=== PATIENT | female | born 1955 | race African-American/Black ===

== ENCOUNTER → 2016-12-08 | Outpatient (CLI) | payer OTHER ==
[~2016-12-08] MED LIST: HYDROCHLOROTH12.5 MG; METOPROLOL SUCC25 M1; NIFEDICAL XL30 MG PO; ULTRAM 50MG TAB50 MG PO
== END ==
LOC: RAD 09:27
DX: Z12.31 Encounter for screening mammogram for malignant neoplasm of breast (principal)

== ENCOUNTER → 2019-01-06 | Outpatient (CLI) | payer OTHER | LOC: RAD 10:17 | DX: Z12.31 Encounter for screening mammogram for malignant neoplasm of breast (principal) ==

== ENCOUNTER 2019-03-28 09:37 | Emergency (ER) | payer OTHER ==
[~2019-03-28] VITALS: Ht 154.9 cm; Wt 70.3 kg
[2019-03-28] MEDS ORDERED: TENORMIN25 MG PO (10:08)
[2019-03-28] MEDS ORDERED: POTASSIUM20 PO (10:09)
[2019-03-28 11:15] LABS: ABSOLUTE NEUTROPHILS 2.5 thou/uL (1.4-8.2); BASOPHILS 0.9 % (0.0-2.0); EOSINOPHILS 2.5 % (0.0-3.0); HEMATOCRIT 37.8 % (37.0-47.0); HEMOGLOBIN 11.9 gm/dL (12.0-15.0); LYMPHOCYTES 42.9 % (24.0-44.0); MCH 21.3 pg (26.0-34.0); MCHC 31.4 g/dL (28.0-37.0); MCV 67.8 fL (80.0-100.0); MONOCYTES 9.4 % (1.0-8.0); PLATELET COUNT 271 thou/uL (150-400); POLYS 44.3 % (36.0-66.0); RBC 5.58 mil/uL (4.20-5.00); RDW 20.4 % (10.5-14.5); WBC 5.6 thou/uL (4.0-11.0)
[2019-03-28 11:30] LABS: ANION GAP 6 mmol/L (7-16); BUN 9 mg/dL (7-18); CALCIUM 9.9 mg/dL (8.5-10.1); CHLORIDE 101 mmol/L (98-107); CO2 33 mmol/L (21-32); CREATININE 0.9 mg/dL (0.6-1.0); GLUCOSE 101 mg/dL (74-106); SODIUM 140 mmol/L (136-145)
[2019-03-28 11:32] LABS: POTASSIUM 2.9 mmol/L (3.5-5.1)
[2019-03-28 11:39] LABS: TROPONIN-I <0.06 ng/mL (<0.06)
[2019-03-28 12:53] VITALS: BP 127/88
[2019-03-28] MEDS ORDERED: GUAIFEN-CODEINE10 ML PO (12:57)
[2019-03-28 13:26] LABS: ANISOCYTOSIS 2+
[2019-03-28 13:27] LABS: HYPOCHROMASIA 2+; MICROCYTES 2+
--- NOTE | 2019-03-29 09:58 | EKG ---
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1955 Requested By: Maliha Grubbs Order Number: [id number] MD: Gilberto Mckeon Measurements Intervals [place] Rate: 79 P: 56 [place]: 209 QRS: 10 QRSD: 90 T: 26 QT: 404 QTc: 464 Interpretive Statements Sinus rhythm Anteroseptal infarct, age indeterminate Compared to ECG 09/09/2012 12:34:16 No significant changes Electronically Signed On 03-29-2019 9:57:32 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
== END 2019-03-28 13:02 | disposition home or self-care (01) ==
LOC: ER 09:37
PROVIDERS: Emergency Medicine
DX: J06.9 Acute upper respiratory infection, unspecified (principal); I10 Essential (primary) hypertension; E03.9 Hypothyroidism, unspecified; F17.210 Nicotine dependence, cigarettes, uncomplicated; Z98.890 Other specified postprocedural states

== ENCOUNTER → 2020-02-07 | Outpatient (CLI) | payer OTHER ==
[~2020-02-07] MED LIST changes: +GUAIFEN-CODEINE10 ML PO; +POTASSIUM20 PO; +TENORMIN25 MG PO
== END ==
LOC: RAD 11:29
PROVIDERS: ATTEND Internal Medicine
DX: Z12.31 Encounter for screening mammogram for malignant neoplasm of breast (principal)

== ENCOUNTER → 2020-02-09 | Outpatient (CLI) | payer OTHER | LOC: RAD 09:04 | PROVIDERS: ATTEND Internal Medicine | DX: R92.1 Mammographic calcification found on diagnostic imaging of breast (principal) ==

== ENCOUNTER → 2020-02-16 | Outpatient (CLI) | payer OTHER ==
--- NOTE | 2020-02-21 13:08 | PATH ---
[facility] [address] [place] [address] PATHOLOGY RPT PROCEDURE Name: JEANCARLOSAMADA [id number] Admission: 02/16/20 Date of : 57 Discharge: Report #: [id number] Path Case #: [id number] [facility] Accession Number: [id number] . 01 Material submitted: . breast - LEFT BREAST CENTRAL. Modifiers: left . 01 Clinical history: . LEFT BREAST CALCIFICATIONS . 02 Diagnosis: "L breast central", stereotactic guided needle biopsy: - Benign breast with fibrocystic changes including stromal fibrosis, cyst formation, duct ectasia, microscopic intraductal papilloma and usual duct hyperplasia with coarse microcalcifications present; no cytologic atypia or malignancy seen. (MANUEL:rigoberto; 02/20/2020) MBR 02/20/2020 1347 Local . 02 Comment: The case is co-reviewed with Dr. Brendan Prescott. Clinical and radiographic correlation is recommended. (CLW:rigoberto; 02/20/2020) . 02 Electronically signed: . Sara Yanez MD, Pathologist NPI- [id number] . 01 Gross description: . The specimen is received in formalin, labeled "Amada Espinoza". The site is additionally labeled on the requisition as, "L breast central". Received are multiple needle cores of fibrofatty tissue measuring 2.8 x 2.0 x 0.5 cm in aggregate dimensions. Also received within the specimen containers a plastic cassette containing multiple cores of fibrofatty tissue measuring 4.5 x 3.2 x 0.4 cm in aggregate dimensions. The suspect tissue is transferred to cassettes A1 and A2, and the remainder of the specimen is submitted in cassette A3. The cold ischemic time is 1 minute. The total formalin for Station time is 31 hours and 51 minutes. ([facility]; 02/17/2020) QAC/QAC 02/17/2020 1317 Local . 02 Pathologist provided ICD-10: N60.12, N60.32, N60.02, N60.42, D24.2, N62 . 02 CPT . [id number] Specimen Comment: A courtesy copy of this report has been sent to [phone] [address] PATHOLOGY RPT PROCEDURE Name: AMADA ESPINOZA Room #: [facility].#: [id number] Admission: 02/16/20 Date of : 57 Discharge: Report #: [id number] Path Case #: [id number] Specimen Comment: Report sent to Performed at: [address], [place], [place] [id number] MD Lars Zafar MD Phone: [phone] Performed at: [address] [id number] MD Radha Mayer MD Phone: [phone]
== END | disposition home or self-care (01) ==
LOC: RAD 11:11
PROVIDERS: ATTEND Internal Medicine
DX: D24.1 Benign neoplasm of right breast (principal); R92.1 Mammographic calcification found on diagnostic imaging of breast; N60.31 Fibrosclerosis of right breast; N60.41 Mammary duct ectasia of right breast; N62 Hypertrophy of breast; Z79.899 Other long term (current) drug therapy

== ENCOUNTER → 2020-09-26 | Outpatient (CLI) | payer OTHER | LOC: RAD 10:33 | PROVIDERS: ATTEND Internal Medicine | DX: R92.8 Other abnormal and inconclusive findings on diagnostic imaging of breast (principal) ==

== ENCOUNTER → 2021-05-06 | Outpatient (CLI) | payer OTHER | LOC: BC 05-01 11:16 | PROVIDERS: ATTEND Internal Medicine | DX: R92.0 Mammographic microcalcification found on diagnostic imaging of breast (principal); R92.8 Other abnormal and inconclusive findings on diagnostic imaging of breast ==